=== PATIENT | male | born 1975 | race Two or more races ===

== ENCOUNTER 2020-12-06 08:20 | Emergency (ER) | payer OTHER ==
[~2020-12-06] VITALS: Ht 172.7 cm; Wt 117.9 kg
[2020-12-06] MEDS ORDERED: VISTARIL25 MG PO (11:14)
== END 2020-12-06 12:12 | disposition home or self-care (01) ==
LOC: ER 08:20
DX: R00.2 Palpitations (principal); F06.4 Anxiety disorder due to known physiological condition